=== PATIENT | female | born 1940 | race Caucasian/White ===

== ENCOUNTER 2020-10-19 12:20 | Inpatient (IN) | payer MEDICARE ==
[~2020-10-19 12:20] MED LIST: Heparin 1,000 UNITS/ML VIAL ONE
[2020-10-19] MEDS ORDERED: hydrALAZINE 20 MG/ML VIAL SLOW IVP PRN (15:18)
[2020-10-19] MEDS ORDERED: Ondansetron PF 4 MG/2 ML Vial IVP PRN (15:18)
[2020-10-19 17:26] LABS: INR-International Normal Ratio 1.1; Prothrombin Time 14.1 sec (12.0-14.7)
[2020-10-19 17:27] LABS: PTT 35.8 sec (22.9-36.1)
[2020-10-19 17:31] LABS: Lactic Acid 1.3 mmol/L (0.5-2.2)
[2020-10-19 17:33] LABS: ALT (SGPT) 44 U/L (8-55); AST (SGOT) 54 U/L (5-34); Albumin 2.8 g/dL (3.4-4.8); Alkaline Phosphatase 117 U/L (40-110); Anion Gap 11 mmol/L (10-20); BUN (Urea Nitrogen) 22 mg/dL (9.8-20.1); Bilirubin, Total 0.5 mg/dL (0.2-1.2); CRP (Inflammatory) 31.21 mg/dL (= or < 0.5); Calc. Creatinine Clearance 0 mL/min (70-130); Calcium 9.7 mg/dL (7.8-10.44); Carbon Dioxide 31 mmol/L (23-31); Chloride 97 mmol/L (98-107); Globulin 4.5 g/dL (2.4-3.5); Glucose 106 mg/dL (83-110); Magnesium 2.1 mg/dL (1.6-2.6); Phosphorus 2.2 mg/dL (2.3-4.7); Potassium 4.1 mmol/L (3.5-5.1); Protein, Total 7.3 g/dL (5.8-8.1); Sodium 135 mmol/L (136-145)
[2020-10-19 17:33] LABS: Band 27 % (5-11); Hemoglobin 9.1 g/dL (12.0-16.0); Lymphocytes 4 % (21-51); MDiff Complete? YES; Mean Corpuscular HGB CONC 32.1 g/dL (32.0-36.0); Mean Corpuscular Hemoglobin 30.9 pg (27.0-31.0); Mean Corpuscular Volume 96.2 fL (78.0-98.0); Monocytes 8 % (0-10); Neutrophil 61 % (42-75); Platelet Count 490 thou/uL (130-400); Platelet Morphology Comment Appears Increased; Polychromasia MODERATE = 3-4 cells (100X) (0-2/hpf); RBC Distribution Width 13.1 % (11.5-14.5); Red Blood Cell (RBC) Count 2.94 mill/uL (4.20-5.40); Target Cells SLIGHT = 2-5 cells (100X) (0-1/hpf); White Blood Cell (WBC) Count 28.5 thou/uL (4.8-10.8)
[2020-10-19] MEDS ORDERED: Sodium Chloride 0.9% 1,000 ML IV SCH (18:15)
[2020-10-19 19:17] LABS: SARS-CoV-2 NAA Rapid Test Not Detected (NotDetected)
[2020-10-19] MEDS: Acetaminophen 500 MG TAB PO SCH ×2 (19:34→23:15)
[2020-10-19 19:40] VITALS: BMI 23.5
[2020-10-19] MEDS: Famotidine/PF 20 mg/2ml Vial SLOW IVP SCH (20:47)
[2020-10-19] MEDS: Ascorbic Acid 500 mg Chewable Tablet PO SCH (20:47)
[2020-10-20] MEDS: Acetaminophen 500 MG TAB PO SCH ×4 (06:00→23:24)
[2020-10-20 06:33] LABS: Hemoglobin 8.4 g/dL (12.0-16.0); Mean Corpuscular HGB CONC 32.7 g/dL (32.0-36.0); Mean Corpuscular Hemoglobin 31.5 pg (27.0-31.0); Mean Corpuscular Volume 96.4 fL (78.0-98.0); Mean Platelet Volume 6.1 fL (7.4-10.4); Platelet Count 463 thou/uL (130-400); RBC Distribution Width 13.2 % (11.5-14.5); Red Blood Cell (RBC) Count 2.68 mill/uL (4.20-5.40); White Blood Cell (WBC) Count 23.7 thou/uL (4.8-10.8)
[2020-10-20 06:46] LABS: Anion Gap 12 mmol/L (10-20); BUN (Urea Nitrogen) 21 mg/dL (9.8-20.1); Calc. Creatinine Clearance 72 mL/min (70-130); Calcium 9.5 mg/dL (7.8-10.44); Carbon Dioxide 29 mmol/L (23-31); Chloride 100 mmol/L (98-107); Glucose 86 mg/dL (83-110); Sodium 137 mmol/L (136-145)
[2020-10-20] MEDS ORDERED: Potassium Phosphate 30 MMOL in Sodium Chloride 0.9% 500 ML IVPB SCH (08:00)
[2020-10-20 08:05] LABS: Band 14 % (5-11); Lymphocytes 3 % (21-51); MDiff Complete? YES; Monocytes 1 % (0-10); Neutrophil 82 % (42-75)
[2020-10-20] MEDS ORDERED: Fentanyl 100 MCG/2 ML VIAL ONE ×2 (09:58→13:40)
[2020-10-20 10:01] LABS: Bacteria/HPF 4+ HPF (None Seen); Bilirubin Negative (Negative); Blood, Urine Trace (Negative); Clarity Turbid (Clear); Glucose, Urine (Dipstick) Normal (Negative); Ketone, Urine Negative (Negative); Leukocyte 500 Leu/uL (Negative); Nitrite 2+ (Negative); Protein, Urine (Dipstick) 50 mg/dL (Neg-Trace); Specific Gravity, Urine 1.023 (1.002-1.036); Squamous Epithelial 0-3 HPF (0-3); Urobilinogen Normal mg/dL (Less than 2); WBC/HPF Greater than 50 HPF (0-3)
[2020-10-20] MEDS ORDERED: Albumin 5% 500 ML ONE (10:59)
[2020-10-20] MEDS ORDERED: Lidocaine 1% PF 5 ML VIAL ONE (11:36)
[2020-10-20] MEDS ORDERED: PROPOFOL 200 MG/20 ML VIAL ONE (11:36)
[2020-10-20] MEDS ORDERED: Rocuronium Bromide 10 MG/ML (10ML VIAL) ONE (11:36)
[2020-10-20] MEDS ORDERED: Ondansetron PF 4 MG/2 ML Vial ONE (11:36)
[2020-10-20] MEDS ORDERED: Glycopyrrolate 0.2 MG/ML 5 ML SYRINGE ONE (11:36)
[2020-10-20] MEDS ORDERED: Dexamethasone 20 MG/5 ML VIAL ONE (11:36)
[2020-10-20] MEDS ORDERED: Phenylephrine 10 MG/ML VIAL ONE (12:47)
[2020-10-20] MEDS ORDERED: SUGAMMADEX SODIUM 200 MG/2 ML VIAL ONE (13:19)
[2020-10-20] MEDS ORDERED: Piperacillin/Tazobactam 3.375 GM VIAL ONE (13:21)
[2020-10-20] MEDS ORDERED: Ondansetron HCl/PF 4 MG/2 ML Vial IVP PRN (13:50)
[2020-10-20] MEDS ORDERED: Promethazine HCl 25 MG/ML VIAL IM PRN (13:50)
[2020-10-20] MEDS ORDERED: Promethazine HCl 25 MG/ML VIAL IVPB PRN (13:50)
[2020-10-20] MEDS ORDERED: HYDROmorphone 2 MG/ML VIAL SLOW IVP PRN (13:50)
[2020-10-20] MEDS: Ascorbic Acid 500 mg Chewable Tablet PO SCH ×2 (13:56→20:28)
[2020-10-20] MEDS: Ferrous Sulfate 325 MG TAB PO SCH ×2 (13:56→17:33)
[2020-10-20] MEDS: Famotidine/PF 20 mg/2ml Vial SLOW IVP SCH ×2 (13:56→20:25)
[2020-10-20] MEDS ORDERED: Piperacillin/Tazobactam 3.375 GM in Sodium Chloride 0.9% 100 ML IVPB SCH (14:45)
[2020-10-20] MEDS: Piperacillin/Tazobactam 3.375 GM in Sodium Chloride 0.9% 100 ML IVPB SCH (17:32)
[2020-10-21] MEDS: Vancomycin 1 GM in Premix Bag 1 BAG IVPB SCH ×2 (00:22→14:00)
[2020-10-21] MEDS: Piperacillin/Tazobactam 3.375 GM in Sodium Chloride 0.9% 100 ML IVPB SCH ×3 (01:17→17:20)
[2020-10-21] MEDS: Acetaminophen 500 MG TAB PO SCH ×4 (05:22→23:39)
[2020-10-21 05:36] LABS: #Lymphocytes 0.5 thou/uL (1.20-3.40); #Neutrophils 20.1 thou/uL (1.40-6.50); %Basophils 0.1 % (0.0-1.0); %Eosinophils 0.1 % (0.0-10.0); %Lymphocytes 2.5 % (21.0-51.0); %Monocytes 4.8 % (0.0-10.0); %Neutrophils 92.5 % (42.0-75.0); Hemoglobin 7.3 g/dL (12.0-16.0); Mean Corpuscular HGB CONC 32.2 g/dL (32.0-36.0); Mean Corpuscular Hemoglobin 31.3 pg (27.0-31.0); Mean Corpuscular Volume 97.2 fL (78.0-98.0); Mean Platelet Volume 5.9 fL (7.4-10.4); Platelet Count 461 thou/uL (130-400); RBC Distribution Width 13.1 % (11.5-14.5); Red Blood Cell (RBC) Count 2.34 mill/uL (4.20-5.40); White Blood Cell (WBC) Count 21.7 thou/uL (4.8-10.8)
[2020-10-21 07:04] LABS: Anion Gap 11 mmol/L (10-20); BUN (Urea Nitrogen) 18 mg/dL (9.8-20.1); Calc. Creatinine Clearance 70 mL/min (70-130); Calcium 8.7 mg/dL (7.8-10.44); Carbon Dioxide 26 mmol/L (23-31); Chloride 105 mmol/L (98-107); Glucose 103 mg/dL (83-110); Magnesium 2.2 mg/dL (1.6-2.6); Phosphorus 3.2 mg/dL (2.3-4.7); Potassium 4.2 mmol/L (3.5-5.1); Sodium 138 mmol/L (136-145)
[2020-10-21] MEDS ORDERED: Enoxaparin Sodium 40 MG/0.4 ML SYRINGE SC SCH (09:00)
[2020-10-21] MEDS: Ferrous Sulfate 325 MG TAB PO SCH ×3 (09:50→17:21)
[2020-10-21] MEDS: Ascorbic Acid 500 mg Chewable Tablet PO SCH ×2 (09:50→20:30)
[2020-10-21] MEDS: Famotidine/PF 20 mg/2ml Vial SLOW IVP SCH ×2 (09:51→20:31)
[2020-10-21] MEDS: Enoxaparin Sodium 40 MG/0.4 ML SYRINGE SC SCH (21:32)
[2020-10-22] MEDS: Vancomycin 1 GM in Premix Bag 1 BAG IVPB SCH ×2 (00:21→13:42)
[2020-10-22] MEDS: Piperacillin/Tazobactam 3.375 GM in Sodium Chloride 0.9% 100 ML IVPB SCH ×2 (01:31→09:38)
[2020-10-22] MEDS: Acetaminophen 500 MG TAB PO SCH ×4 (05:00→23:12)
[2020-10-22 06:01] LABS: Anion Gap 13 mmol/L (10-20); BUN (Urea Nitrogen) 16 mg/dL (9.8-20.1); Calc. Creatinine Clearance 70 mL/min (70-130); Calcium 8.7 mg/dL (7.8-10.44); Carbon Dioxide 24 mmol/L (23-31); Chloride 104 mmol/L (98-107); Glucose 78 mg/dL (83-110); Magnesium 2.3 mg/dL (1.6-2.6); Phosphorus 2.2 mg/dL (2.3-4.7); Potassium 3.2 mmol/L (3.5-5.1); Sodium 138 mmol/L (136-145)
[2020-10-22 06:21] LABS: Hemoglobin 8.5 g/dL (12.0-16.0); Mean Corpuscular HGB CONC 32.5 g/dL (32.0-36.0); Mean Corpuscular Hemoglobin 31.8 pg (27.0-31.0); Mean Corpuscular Volume 97.9 fL (78.0-98.0); Mean Platelet Volume 6.1 fL (7.4-10.4); Platelet Count 514 thou/uL (130-400); RBC Distribution Width 13.2 % (11.5-14.5); Red Blood Cell (RBC) Count 2.66 mill/uL (4.20-5.40); White Blood Cell (WBC) Count 21.4 thou/uL (4.8-10.8)
[2020-10-22 06:56] LABS: Band 12 % (5-11); Lymphocytes 11 % (21-51); MDiff Complete? YES; Monocytes 3 % (0-10); Neutrophil 74 % (42-75)
[2020-10-22] MEDS ORDERED: Potassium Phosphate 30 MMOL in Sodium Chloride 0.9% 500 ML IVPB SCH (07:00)
[2020-10-22] MEDS ORDERED: Potassium Phosphate 30 MMOL in Sodium Chloride 0.9% 250 ML 250 ML IVPB SCH (07:45)
[2020-10-22] MEDS: Famotidine/PF 20 mg/2ml Vial SLOW IVP SCH ×2 (08:37→21:28)
[2020-10-22] MEDS: Enoxaparin Sodium 40 MG/0.4 ML SYRINGE SC SCH (08:38)
[2020-10-22] MEDS: Ferrous Sulfate 325 MG TAB PO SCH ×3 (08:38→17:41)
[2020-10-22] MEDS: Ascorbic Acid 500 mg Chewable Tablet PO SCH ×2 (08:38→21:28)
[2020-10-22] MEDS ORDERED: Enoxaparin Sodium 40 MG/0.4 ML SYRINGE SC SCH (09:00)
[2020-10-22] MEDS: Rifampin 300 MG CAP PO SCH (21:28)
[2020-10-23 00:19] LABS: Vancomycin, Trough 29.4 ug/mL
[2020-10-23 05:37] LABS: #Eosinphils 0.1 thou/uL (0.0-0.7); #Lymphocytes 1.2 thou/uL (1.20-3.40); #Monocytes 1.1 thou/uL (0.11-0.59); #Neutrophils 18.9 thou/uL (1.40-6.50); %Basophils 0.1 % (0.0-1.0); %Eosinophils 0.5 % (0.0-10.0); %Lymphocytes 5.5 % (21.0-51.0); %Monocytes 5.3 % (0.0-10.0); %Neutrophils 88.6 % (42.0-75.0); Hemoglobin 8.4 g/dL (12.0-16.0); Mean Corpuscular HGB CONC 33.1 g/dL (32.0-36.0); Mean Corpuscular Hemoglobin 31.8 pg (27.0-31.0); Mean Corpuscular Volume 96.1 fL (78.0-98.0); Mean Platelet Volume 6.1 fL (7.4-10.4); Platelet Count 510 thou/uL (130-400); RBC Distribution Width 13.4 % (11.5-14.5); Red Blood Cell (RBC) Count 2.65 mill/uL (4.20-5.40); White Blood Cell (WBC) Count 21.3 thou/uL (4.8-10.8)
[2020-10-23] MEDS: Acetaminophen 500 MG TAB PO SCH ×4 (05:58→23:12)
[2020-10-23] MEDS: Vancomycin HCl 750 MG in Sodium Chloride 0.9% 250 ML 250 ML IVPB SCH ×2 (08:55→20:46)
[2020-10-23] MEDS: Ferrous Sulfate 325 MG TAB PO SCH ×3 (08:56→20:47)
[2020-10-23] MEDS: Ascorbic Acid 500 mg Chewable Tablet PO SCH ×2 (08:56→20:47)
[2020-10-23] MEDS: Enoxaparin Sodium 40 MG/0.4 ML SYRINGE SC SCH (08:56)
[2020-10-23] MEDS: Rifampin 300 MG CAP PO SCH ×2 (08:56→20:47)
[2020-10-24] MEDS: Acetaminophen 500 MG TAB PO SCH ×3 (05:37→18:04)
[2020-10-24] MEDS: Vancomycin HCl 750 MG in Sodium Chloride 0.9% 250 ML 250 ML IVPB SCH (09:24)
[2020-10-24] MEDS: Ascorbic Acid 500 mg Chewable Tablet PO SCH ×2 (09:26→21:58)
[2020-10-24] MEDS: Ferrous Sulfate 325 MG TAB PO SCH ×2 (09:26→21:58)
[2020-10-24] MEDS: Enoxaparin Sodium 40 MG/0.4 ML SYRINGE SC SCH (09:26)
[2020-10-24 10:38] LABS: Fungus Stain Final report (.)
[2020-10-24] MEDS: Rifampin 300 MG CAP PO SCH ×2 (12:31→21:58)
[2020-10-24 13:38] LABS: Fungus Stain Final report (.)
[2020-10-24 20:23] LABS: Vancomycin, Trough 23.3 ug/mL
[2020-10-24] MEDS: VANCOMYCIN 1.25 GM/250 ML BAG 1.25 GM in Premix Bag 1 BAG IVPB SCH (21:58)
[2020-10-25] MEDS: Acetaminophen 500 MG TAB PO SCH ×4 (00:09→17:53)
[2020-10-25] MEDS: Ferrous Sulfate 325 MG TAB PO SCH ×2 (09:42→21:11)
[2020-10-25] MEDS: Ascorbic Acid 500 mg Chewable Tablet PO SCH ×2 (09:42→21:11)
[2020-10-25] MEDS: Enoxaparin Sodium 40 MG/0.4 ML SYRINGE SC SCH (09:42)
[2020-10-25] MEDS: Rifampin 300 MG CAP PO SCH ×2 (10:34→21:11)
[2020-10-25] MEDS: VANCOMYCIN 1.25 GM/250 ML BAG 1.25 GM in Premix Bag 1 BAG IVPB SCH (21:12)
[2020-10-26] MEDS: Acetaminophen 500 MG TAB PO SCH ×4 (00:38→18:30)
[2020-10-26] MEDS: Saccharomyces boulardii 250 MG CAP PO SCH (09:16)
[2020-10-26] MEDS: Ferrous Sulfate 325 MG TAB PO SCH ×2 (09:16→21:06)
[2020-10-26] MEDS: Ascorbic Acid 500 mg Chewable Tablet PO SCH ×2 (09:16→21:05)
[2020-10-26] MEDS: Enoxaparin Sodium 40 MG/0.4 ML SYRINGE SC SCH (09:17)
[2020-10-26] MEDS: Rifampin 300 MG CAP PO SCH ×2 (10:54→21:16)
[2020-10-26 12:51] LABS: SARS-CoV-2 PCR by NAA Not Detected (NotDetected)
[2020-10-26] MEDS: Vancomycin 25 MG/ML Oral SOLN PO SCH ×2 (15:43→21:06)
[2020-10-26 20:19] LABS: Vancomycin, Trough 14.4 ug/mL
[2020-10-26] MEDS: VANCOMYCIN 1.25 GM/250 ML BAG 1.25 GM in Premix Bag 1 BAG IVPB SCH (21:06)
[2020-10-27] MEDS: Acetaminophen 500 MG TAB PO SCH ×5 (01:20→23:19)
[2020-10-27] MEDS: Vancomycin 25 MG/ML Oral SOLN PO SCH ×4 (02:11→21:23)
[2020-10-27] MEDS: Rifampin 300 MG CAP PO SCH ×2 (09:09→21:23)
[2020-10-27] MEDS: Ascorbic Acid 500 mg Chewable Tablet PO SCH ×2 (09:09→20:54)
[2020-10-27] MEDS: Ferrous Sulfate 325 MG TAB PO SCH ×2 (09:09→20:54)
[2020-10-27] MEDS: Saccharomyces boulardii 250 MG CAP PO SCH (09:10)
[2020-10-27] MEDS: Enoxaparin Sodium 40 MG/0.4 ML SYRINGE SC SCH (09:10)
[2020-10-27] MEDS: VANCOMYCIN 1.25 GM/250 ML BAG 1.25 GM in Premix Bag 1 BAG IVPB SCH (20:54)
[2020-10-28] MEDS: Vancomycin 25 MG/ML Oral SOLN PO SCH ×4 (02:59→20:56)
[2020-10-28] MEDS: Acetaminophen 500 MG TAB PO SCH ×4 (05:26→23:33)
[2020-10-28] MEDS: Enoxaparin Sodium 40 MG/0.4 ML SYRINGE SC SCH (12:22)
[2020-10-28] MEDS: Rifampin 300 MG CAP PO SCH ×2 (12:22→20:55)
[2020-10-28] MEDS: Ascorbic Acid 500 mg Chewable Tablet PO SCH ×2 (12:23→20:55)
[2020-10-28] MEDS: Ferrous Sulfate 325 MG TAB PO SCH ×2 (12:23→20:55)
[2020-10-28] MEDS: Saccharomyces boulardii 250 MG CAP PO SCH (12:23)
[2020-10-28] MEDS: traMADol HCl 50 MG TAB PO PRN (15:52)
[2020-10-28 20:21] LABS: Vancomycin, Trough 12.4 ug/mL
[2020-10-28] MEDS: VANCOMYCIN 1.25 GM/250 ML BAG 1.25 GM in Premix Bag 1 BAG IVPB SCH (20:56)
[2020-10-29] MEDS: Vancomycin 25 MG/ML Oral SOLN PO SCH ×3 (03:09→15:45)
[2020-10-29] MEDS: traMADol HCl 50 MG TAB PO PRN ×2 (04:29→10:40)
[2020-10-29] MEDS: Acetaminophen 500 MG TAB PO SCH ×2 (05:53→10:40)
[2020-10-29] MEDS: Ferrous Sulfate 325 MG TAB PO SCH (09:25)
[2020-10-29] MEDS: Enoxaparin Sodium 40 MG/0.4 ML SYRINGE SC SCH (09:25)
[2020-10-29] MEDS: Ascorbic Acid 500 mg Chewable Tablet PO SCH (09:25)
[2020-10-29] MEDS: Saccharomyces boulardii 250 MG CAP PO SCH (09:25)
[2020-10-29] MEDS: Rifampin 300 MG CAP PO SCH (10:40)
[2020-10-29 11:25] LABS: Anisocytosis SLIGHT = 6-15 cells (100X) (0-5/hpf); Band 2 % (5-11); Hemoglobin 8.4 g/dL (12.0-16.0); Lymphocytes 4 % (21-51); MDiff Complete? YES; Mean Corpuscular HGB CONC 32.2 g/dL (32.0-36.0); Mean Corpuscular Hemoglobin 31.2 pg (27.0-31.0); Mean Corpuscular Volume 96.9 fL (78.0-98.0); Mean Platelet Volume 5.7 fL (7.4-10.4); Monocytes 6 % (0-10); Neutrophil 87 % (42-75); Platelet Count 682 thou/uL (130-400); Platelet Morphology Comment Appears Increased; Polychromasia SLIGHT = 2-3 cells (100X) (0-2/hpf); RBC Distribution Width 15.3 % (11.5-14.5); Red Blood Cell (RBC) Count 2.68 mill/uL (4.20-5.40); White Blood Cell (WBC) Count 15.6 thou/uL (4.8-10.8)
[2020-10-29 16:25] VITALS: BP 161/85; TEMP 97.6
[2020-11-19 15:37] LABS: Fungus Culture Final report (.)
== END 2020-10-29 16:52 | DRG 463 ==
LOC: ERS 12:20 → SURG A 14:57
PROVIDERS: ADMIT Specialist; ATTEND Surgery
PROC: 0SRR0JZ Replacement of Right Hip Joint, Femoral Surface with Synthetic Substitute, Open Approach (ICD-10-PCS; principal; 2020-10-20)
PROC: 0SPR0JZ Removal of Synthetic Substitute from Right Hip Joint, Femoral Surface, Open Approach (ICD-10-PCS; 2020-10-20)
PROC: 02HV33Z Insertion of Infusion Device into Superior Vena Cava, Percutaneous Approach (ICD-10-PCS; 2020-10-24)
PROC: B5181ZA Fluoroscopy of Superior Vena Cava using Low Osmolar Contrast, Guidance (ICD-10-PCS; 2020-10-24)
PROC: B548ZZA Ultrasonography of Superior Vena Cava, Guidance (ICD-10-PCS; 2020-10-24)
PROC: 0JB70ZZ Excision of Back Subcutaneous Tissue and Fascia, Open Approach (ICD-10-PCS; 2020-10-28)
DX: T84.51XA Infection and inflammatory reaction due to internal right hip prosthesis, initial encounter (principal); S72.111A Displaced fracture of greater trochanter of right femur, initial encounter for closed fracture; A04.72 Enterocolitis due to Clostridium difficile, not specified as recurrent; I25.10 Atherosclerotic heart disease of native coronary artery without angina pectoris; I73.9 Peripheral vascular disease, unspecified; J44.9 Chronic obstructive pulmonary disease, unspecified; I10 Essential (primary) hypertension; E78.5 Hyperlipidemia, unspecified; F01.50 Vascular dementia, unspecified severity, without behavioral disturbance, psychotic disturbance, mood disturbance, and anxiety; W19.XXXA Unspecified fall, initial encounter; L89.150 Pressure ulcer of sacral region, unstageable; I25.5 Ischemic cardiomyopathy; Z20.822 Contact with and (suspected) exposure to COVID-19; Y83.1 Surgical operation with implant of artificial internal device as the cause of abnormal reaction of the patient, or of later complication, without mention of misadventure at the time of the procedure; I25.2 Old myocardial infarction; Z88.2 Allergy status to sulfonamides; Z79.02 Long term (current) use of antithrombotics/antiplatelets; Z79.82 Long term (current) use of aspirin; Z87.891 Personal history of nicotine dependence; Z95.5 Presence of coronary angioplasty implant and graft; Z90.710 Acquired absence of both cervix and uterus
CPT/HCPCS: 36415; 36569; 71045; 72170; 80048; 80053; 80202; 81001; 83605; 83735; 84100; 84145; 85007; 85025; 85027; 85610; 85652; 85730; 86140; 86850; 86900; 86901; 87040; 87070; 87077; 87086; 87102; 87116; 87186; 87205; 87206; 87324; 87449; 87493; 93005; C1751; C1776; J1100; J1644; J1650; J2370; J2405; J2543; J2704; J3010; J3370; J3490; J7050; P9045; S0028; U0002; U0003; U0005